=== PATIENT | male | born 1975 | race Caucasian/White ===

== ENCOUNTER 2021-08-01 12:39 | Emergency (ER) | payer OTHER ==
[~2021-08-01 12:39] MED LIST: ANTIVERT 25MG T25 MG PO; ASPIRIN 325MG325 MG PO; ASPIRIN81 MG PO; ELIQUIS5 MG PO; ENOXAPARIN30 MG/0.3 SC; ENOXAPARIN40 MG/0.4 SC; HYDRALAZINE HCL25 MG PO; LEVAQUIN750 MG PO; LIPITOR TAB 2020 MG PO; LIPITOR80 MG PO; LO-DOSE ASPIRIN81 MG PO; LOPRESSOR 25 MG25 MG PO; LORTAB 5-325 M1 EACH PO; PLAVIX 75 MG TA75 MG PO; PLAVIX75 MG PO
[2021-08-01 13:34] LABS: HEMOGLOBIN 13.5 gm/dl (14.0-17.5); RED BLOOD COUNT 4.45 M/UL (4.20-5.50); WHITE BLOOD COUNT 7.6 K/UL (4.5-11.0)
[2021-08-01 14:03] LABS: BUN/CREATININE RATIO 17 (0-10)
== END 2021-08-01 15:44 | disposition home or self-care (01) ==
LOC: ER1 12:39
PROVIDERS: Emergency Medicine
DX: I10 Essential (primary) hypertension (principal)
CPT/HCPCS: 71045; 80053; 82550; 82553; 83874; 84484; 85025; 93005; 96374; 99283; J0360

== ENCOUNTER 2021-08-08 11:18 | Emergency (ER) | payer OTHER ==
[2021-08-08 12:20] LABS: HEMOGLOBIN 14.5 gm/dl (14.0-17.5); RED BLOOD COUNT 4.75 M/UL (4.20-5.50); WHITE BLOOD COUNT 9.1 K/UL (4.5-11.0)
[2021-08-08 12:41] LABS: BUN/CREATININE RATIO 17 (0-10)
[2021-08-08] MEDS ORDERED: CYCLOBENZAPRINE5 MG PO (15:45)
== END 2021-08-08 15:58 | disposition home or self-care (01) ==
LOC: ER1 11:18
PROVIDERS: Physician Assistant
DX: I10 Essential (primary) hypertension (principal); E78.5 Hyperlipidemia, unspecified; M25.512 Pain in left shoulder; Z88.0 Allergy status to penicillin; Z79.82 Long term (current) use of aspirin; R51.9 Headache, unspecified
CPT/HCPCS: 70450; 71045; 72125; 80053; 82550; 82553; 83874; 84484; 85025; 93005; 99284

== ENCOUNTER 2021-09-08 21:15 | Emergency (ER) | payer OTHER ==
[~2021-09-08 21:15] MED LIST changes: +CYCLOBENZAPRINE5 MG PO
[2021-09-08 22:04] LABS: HEMOGLOBIN 13.9 gm/dl (14.0-17.5); RED BLOOD COUNT 4.63 M/UL (4.20-5.50)
[2021-09-08 22:40] LABS: BUN/CREATININE RATIO 16 (0-10)
== END 2021-09-08 21:45 | disposition left against medical advice (07) ==
LOC: ER1 21:15
PROVIDERS: Physician Assistant
DX: R10.9 Unspecified abdominal pain (principal); F17.210 Nicotine dependence, cigarettes, uncomplicated; I11.9 Hypertensive heart disease without heart failure; E78.5 Hyperlipidemia, unspecified; Z88.0 Allergy status to penicillin; Z79.01 Long term (current) use of anticoagulants; Z86.73 Personal history of transient ischemic attack (TIA), and cerebral infarction without residual deficits
CPT/HCPCS: 71045; 80053; 82550; 82553; 83690; 83735; 83874; 83880; 84484; 85025; 93005; 99282

== ENCOUNTER → 2021-11-06 | Outpatient (CLI) | payer OTHER | LOC: RAD 11:38 | DX: R05.9 Cough, unspecified (principal) | CPT/HCPCS: 71046 ==

== ENCOUNTER → 2021-11-15 | Outpatient (CLI) | payer OTHER | LOC: KOH-I 14:02 | DX: M79.601 Pain in right arm (principal); R60.0 Localized edema | CPT/HCPCS: 93971 ==

== ENCOUNTER → 2022-05-16 | Outpatient (CLI) | payer OTHER | LOC: RAD 10:30 | DX: J20.9 Acute bronchitis, unspecified (principal); Z20.822 Contact with and (suspected) exposure to COVID-19 | CPT/HCPCS: 71046; U0002 ==